=== PATIENT | female | born 1950 | race African-American/Black ===

== ENCOUNTER 2020-09-05 11:25 | Emergency (ER) | payer MEDICARE ==
[~2020-09-05] VITALS: Ht 157.5 cm; Wt 65.8 kg
[2020-09-05] MEDS ORDERED: PREDNISONE20 MG PO (13:12)
== END 2020-09-05 13:15 | disposition home or self-care (01) ==
LOC: FSED 11:49
DX: S83.91XA Sprain of unspecified site of right knee, initial encounter (principal); W01.0XXA Fall on same level from slipping, tripping and stumbling without subsequent striking against object, initial encounter; Y93.01 Activity, walking, marching and hiking; F03.90 Unspecified dementia, unspecified severity, without behavioral disturbance, psychotic disturbance, mood disturbance, and anxiety; I10 Essential (primary) hypertension; E11.9 Type 2 diabetes mellitus without complications; E78.5 Hyperlipidemia, unspecified
CPT/HCPCS: 99283